=== PATIENT | female | born 1940 | race Caucasian/White ===

== ENCOUNTER 2018-01-19 06:31 | Day surgery (SDC) | payer MEDICARE, OTHER ==
[2018-01-19] MEDS ORDERED: PROPOFOL 60 ML (17:29)
[2018-01-19] MEDS ORDERED: MIDAZOLAM 1 MG/ML 2 ML INJ (17:29)
[2018-01-19] MEDS ORDERED: LIDOCAINE 2% (SDV) 5 ML INJ (17:29)
== END 2018-01-19 10:00 | disposition home or self-care (01) ==
LOC: GIL 06:31
DX: K44.9 Diaphragmatic hernia without obstruction or gangrene (principal); K21.9 Gastro-esophageal reflux disease without esophagitis; K29.60 Other gastritis without bleeding; K64.8 Other hemorrhoids
CPT/HCPCS: 43239; 87081; 88305

== ENCOUNTER 2018-02-22 11:45 | Day surgery (SDC) | payer MEDICARE, OTHER ==
[2018-02-22] MEDS ORDERED: BUPIVACAINE 0.25% (MPF) 30 ML INJ (13:07)
[2018-02-22] MEDS ORDERED: LIDOCAINE 1%/EPI 30 ML INJ (13:08)
[2018-02-22] MEDS ORDERED: IOHEXOL 300MG/ML 30 ML BTL (13:08)
[2018-02-22] MEDS ORDERED: ROCURONIUM 50 MG INJ (13:43)
[2018-02-22] MEDS ORDERED: PROPOFOL 20 ML (13:43)
[2018-02-22] MEDS ORDERED: ROPIVACAINE 0.5 % 30 ML VIAL (13:43)
[2018-02-22] MEDS ORDERED: CEFAZOLIN 1 GM INJ (13:43)
[2018-02-22] MEDS ORDERED: FENTAnyl 50 MCG/ML VIAL (13:43)
[2018-02-22] MEDS ORDERED: MIDAZOLAM 1 MG/ML 2 ML INJ (13:43)
[2018-02-22] MEDS ORDERED: PHENYLephrine (100 MCG/ML) 5ML SYG (14:49)
[2018-02-22] MEDS: LIDOCAINE 1%/EPI 30 ML INJ INJ (15:15)
[2018-02-22] MEDS: BUPIVACAINE 0.25% (MPF) 30 ML INJ INJ (15:15)
[2018-02-22] MEDS: SODIUM CHLORIDE 0.9% 1L IRRIG IRR (15:15)
[2018-02-22] MEDS ORDERED: METOCLOPRAMIDE 10 MG INJ (15:17)
[2018-02-22] MEDS ORDERED: DEXAMETHASONE 4 MG/ML 1 ML INJ (15:17)
[2018-02-22] MEDS ORDERED: KETOROLAC 30 MG INJ (15:17)
[2018-02-22] MEDS ORDERED: ONDANSETRON 4 MG INJ (15:17)
[2018-02-22] MEDS ORDERED: ACETAMINOPHEN 1000MG/100ML IV 100 ML (15:17)
[2018-02-22] MEDS ORDERED: metroNIDAZOLE 500 MG/NS (PMX) 100 ML IVPB (15:18)
[2018-02-22] MEDS ORDERED: SUGAMMADEX SODIUM 200 MG/2 ML VIAL IV (15:18)
[2018-02-22] MEDS ORDERED: HYDROmorphONE (0.2 MG/ML) 10ML SYG IV ×2 (15:30)
[2018-02-22] MEDS ORDERED: METOCLOPRAMIDE 10 MG INJ IV (15:30)
[2018-02-22] MEDS ORDERED: LABETALOL HCL 20MG INJ IV (15:30)
[2018-02-22] MEDS ORDERED: hydrALAzine 20 MG INJ IV (15:30)
[2018-02-22] MEDS ORDERED: FENTAnyl 50 MCG/ML VIAL IV ×3 (15:30)
[2018-02-22] MEDS ORDERED: DIPHENHYDRAMINE 50 MG INJ IV (15:30)
[2018-02-22] MEDS ORDERED: EPHEDrine SULFATE 50 MG/5 ML SYG IV (15:30)
[2018-02-22] MEDS: ONDANSETRON 4 MG INJ IV (15:56)
[2018-02-22] MEDS: MEPERIDINE 25 MG INJ IV (15:57)
[2018-02-22] MEDS: HYDROmorphONE (0.2 MG/ML) 10ML SYG IV (16:41)
== END 2018-02-22 17:40 | disposition home or self-care (01) ==
LOC: SDS 11:45
DX: K80.10 Calculus of gallbladder with chronic cholecystitis without obstruction (principal); K76.89 Other specified diseases of liver
CPT/HCPCS: 47379; 71045; 88304; 88307; 88313